=== PATIENT | male | born 1945 | race Caucasian/White ===

== ENCOUNTER 2019-05-09 12:03 | Day surgery (SDC) | payer OTHER, MEDICARE ==
[2019-05-07 12:01] VITALS: BMI 23.2
[~2019-05-09 12:03] MED LIST: ALBUTEROL NEB (CONC) 2.5 MG/0.5 ML INHALATION ONE; LACTATED RINGERS 1,000 ML IV SCH; LIDOCAINE 2% (PF) 20 MG/ML 5 ML VIAL INHALATION ONE; LIDOCAINE VISCOUS 300 MG/15 ML CUP MUCOUS MEM ONE; SODIUM CHLORIDE 0.9% 1,000 ML IV SCH
[2019-05-09] MEDS ORDERED: LIDOCAINE 1% 20 ML VIAL (10MG/ML) FOR IV START INTRADERMA ONE (13:18)
[2019-05-09 13:23] VITALS: TEMP 97.3
[2019-05-09] MEDS ORDERED: PROPOFOL 10 MG/ML 20 ML VIAL IV ONE (14:16)
[2019-05-09] MEDS ORDERED: LIDOCAINE 2% INJ 20 MG/ML INTRATRACH ONE (14:30)
--- NOTE | 2019-05-09 14:37 | P.PCN ---
Date of Procedure: 05/09/19 Preoperative Diagnosis: JOSE opacity/infiltrating mass with cavitation Postoperative Diagnosis: JOSE opacity/infiltrating mass with cavitation Procedure(s) Performed: Flexible bronchoscopy and a BAL of the JOSE Anesthesia: GISELLE Surgeon: Landon Crowell Pathology: other Condition: stable Disposition: same day Description of Procedure: This is a flexible bronchoscopy that was done in the endoscopy suite under conscious sedation. The patient is a left upper lobe cavitating infiltrating mass/opacity. A bronchioloalveolar lavage of the left upper lobe was done during the procedure This procedure was done under conscious sedation. Anesthetic agents was administered by anesthesia the bedside. After achieving adequate sedation, the flexible bronchoscope was inserted through the left nostril was advanced with Doppler airway. Examination of the posterior oropharynx, larynx, epiglottis and vocal cords and all of the upper airway structures was done and they were all within normal limits. Epiglottis was within normal and the cords were symmetric and and sharp without any nodules or lesions. There was some mobility without any abnormalities. A total of 2 mL of 1% lidocaine was applied to the vocal cords and following that the bronchoscope was advanced into the upper trachea. Examination of the tracheal bronchial tree was done. This involved the entire trachea, shannon, bilateral mainstem bronchi, right upper lobe bronchus, right upper lobe bronchus, right lower lobe bronchus, left upper lobe bronchus, left lower lobe bronchus along with his various segments and subsegments. All of these were treated and within normal limits. The bronchoscope was moved to the anterior segment of the left upper lobe and a bronchoalveolar lavage was done. A total of 80 mL of fluid was infused and 25 mL was aspirated. This was done without any complication. The aspirate was turbid and yellowish in color. No other bronchial tumors. No foreign bodies. No lesions identified. The bronchoscope was removed and the patient was transferred recovery in stable condition. The samples will be sent for microbial analysis and cytology. PET scan is to follow regarding this left upper lobe mass.
[2019-05-09 15:07] VITALS: RESP 24
[2019-05-09 15:26] VITALS: BP 109/53; PULSE 61
== END 2019-05-09 15:47 | disposition home or self-care (01) ==
LOC: ORWHC2ENDO 12:03
PROVIDERS: ATTEND Internal Medicine Critical Care Medicine
DX: C34.12 Malignant neoplasm of upper lobe, left bronchus or lung (principal); E78.5 Hyperlipidemia, unspecified; J44.9 Chronic obstructive pulmonary disease, unspecified; I25.10 Atherosclerotic heart disease of native coronary artery without angina pectoris; I10 Essential (primary) hypertension; I73.9 Peripheral vascular disease, unspecified; Z87.891 Personal history of nicotine dependence; K44.9 Diaphragmatic hernia without obstruction or gangrene; I25.2 Old myocardial infarction; Z85.828 Personal history of other malignant neoplasm of skin; Z97.2 Presence of dental prosthetic device (complete) (partial); Z95.5 Presence of coronary angioplasty implant and graft; Z80.8 Family history of malignant neoplasm of other organs or systems; Z82.3 Family history of stroke; Z79.02 Long term (current) use of antithrombotics/antiplatelets; Z82.0 Family history of epilepsy and other diseases of the nervous system; Z79.82 Long term (current) use of aspirin; Z79.899 Other long term (current) drug therapy; Z88.0 Allergy status to penicillin; Z88.2 Allergy status to sulfonamides
CPT/HCPCS: 94640; 87798 ×3; 87496; 87498; 87529; 88108; 88305; 88342; 87252; 87502; 87634; 88341; 87070; 87205; 87116; 87102; 87206; 31624; J2001 ×2; J2704; 31645

== ENCOUNTER → 2019-05-12 | Outpatient (CLI) | payer OTHER, MEDICARE ==
--- NOTE | 2019-05-14 13:59 | PE ---
EXAMINATION TYPE: PET CT fusion skull to thigh DATE OF EXAM: 05/12/2019 COMPARISON: CT low dose dated 04/12/2019 HISTORY: Abnormal low dose CT chest dated 04/12/2019 TECHNIQUE: Following the intravenous administration of 13.11 mCi of F-18 FDG, whole body images are performed from the skull base to the midthigh. Images are reviewed on the computer in the coronal, a xial, and sagittal planes. Reconstructed rotating images are created on independent workstation and reviewed on the computer. A localization and attenuation correction CT is performed in conjunction with the PET scan. SCAN: Initial staging FINDINGS: Mediastinal background: 1.56 Abdominal background: 2.67 SKULL BASE AND NECK: No suspicious uptake. CHEST, MEDIASTINUM, AND HILAR REGION: There is severe background pulmonary emphysema. The known left upper lobe pulmonary mass with the most solid inferior portion measuring 3.9 cm on the prior examinat ion (cavitary mass measuring 6.1 x 2.7 cm in total) has a maximum SUV of 12.7. Multiple satellite pul monary nodules are again seen with the most spiculated measuring 1.1 cm and having an SUV of 10.2. Prevascular lymph node measuring 9 mm on the prior exam and has an SUV of 3.76. Conglomeration of lym ph nodes in the prevascular space and aorticopulmonary window measuring 3.4 x 2.1 cm on the prior exa m has an SUV of 7.62. Left perihilar conglomeration of lymph nodes measuring 1.5 cm in short axis black s an SUV of 5.12. Right paratracheal adenopathy with a maximum SUV of 4.05 measures 1.1 cm in short a xis. No suspicious supraclavicular adenopathy or uptake. ABDOMEN AND PELVIS: Multifocal uptake/excretion throughout the colon with a maximum SUV of 8.18 and t he ascending colon. Correlate with any recent colonoscopy. No gross obstructing mass. Moderate degree colonic fecal stasis. OSSEOUS STRUCTURES: Multifocal uptake of the spine, particularly of the lumbar spine is seen with max imum SUV of 3.0 cm measured at L4. Findings are likely on a degenerative basis. 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 Right main pulm onary artery and left main pulmonary artery are slightly enlarged measuring 2.9 and 2.3 cm respective ly. Very small hiatal hernia again seen. Moderate coronary calcifications. Probable punctate bone isl and of the right iliac bone on image 198. No focal uptake. Extensive atherosclerosis of the abdominal aorta and its branches. Abdominal viscera are limited by lack of intravenous contrast and patient mo tion. Bilateral subcentimeter renal cysts are present. Sigmoid colon demonstrates diffuse thickening in a long segment, possibly on the basis of chronic diverticulosis. 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 Contralateral and anterolateral mediastinal lymph nodes are pathologically enlarged and hypermetabolic compatible with metastasis. No evidence of supraclavicular adenopathy nor distant visceral metastasis. Bronchoscopy or percutaneous biopsy woul d be recommended. Bronchoscopy could be favored as there is advanced underlying COPD in this patient high risk for percutaneous biopsy. Current staging of [id number] although biopsy has not been performed a t this time.
== END | disposition home or self-care (01) ==
LOC: RADPETMAIN 13:03
PROVIDERS: ATTEND Internal Medicine Critical Care Medicine
DX: R91.8 Other nonspecific abnormal finding of lung field (principal)
CPT/HCPCS: 78815; A9552

== ENCOUNTER → 2019-06-01 | Outpatient (CLI) | payer OTHER, MEDICARE ==
--- NOTE | 2019-06-01 16:46 | MR ---
EXAMINATION TYPE: MR brain wo/w con DATE OF EXAM: 06/01/2019 COMPARISON: NONE HISTORY: Malignant neoplasm of upper lobe TECHNIQUE: Multiplanar, multisequence images of the brain and brainstem is performed without and with IV contras t, utilizing 7.5 mL intravenous Gadavist . FINDINGS: Diffusion weighted images demonstrate no evidence of a recent infarct or other diffusion ab normality. There is no worrisome extra-axial fluid collection. There is diffuse ventricular and sulc al prominence. Mild low attenuation in the periventricular white matter is seen. Midline structures demonstrate normal morphology. The craniocervical junction appears within normal limits. Post contrast images demonstrate some artifact but no definitive abnormal enhancing masses. The dural venous sinuses appear patent. Some dependent fluid left posterior ethmoid sinus otherwise t he paranasal sinuses are clear. Globes are intact bilaterally. IMPRESSION: 1. No suspicious enhancement to suggest metastatic disease to the brain. 2. Moderate diffuse cerebral atrophy and left posterior ethmoid sinus disease.
== END | disposition home or self-care (01) ==
LOC: RADMRIMAIN 15:22
PROVIDERS: ATTEND Radiology Radiation Oncology
DX: C34.12 Malignant neoplasm of upper lobe, left bronchus or lung (principal); G31.9 Degenerative disease of nervous system, unspecified
CPT/HCPCS: 70553